=== PATIENT | male | born 1975 | race Caucasian/White ===

== ENCOUNTER 2019-12-29 07:55 | Emergency (ER) | payer OTHER ==
--- NOTE | 2019-12-29 08:08 | ED Physician Documentation ---
History of Present Illness - Stated complaint Stated Complaint: CP/VOMITING - Additonal information Additional information: This is a 44-year-old male with a history of chronic back pain, and reported gastritis on ranitidine, who presents with epigastric pain. Pain began last ni ght and was mild, it occurred several hours after eating. It is progressed to this morning when it became severe associated with one episode of vomiting and loose stool. The emesis and stool were nonbloody, nonbilious. Patient's discomfort is located in the midepigastrium radiates somewhat towards the right. He denies shortness of breath, no radiation to the jaw or arms. No diaphoresis. He does have sleep apnea, his father had an KS in his 50s. Patient denies any personal history of cardiac problems. He has not had any abdominal surgeries. No fever. Review of Systems Constitutional: denies: Fever Nose: denies: Congestion Throat: denies: Oral lesions / sores Cardiac: denies: Chest pain / pressure Respiratory: denies: Dyspnea GI: reports: Abdominal Pain : denies: Dysuria Musculoskeletal: denies: Neck pain Neurologic: denies: Generalized weakness Immunocompromised: denies: Immunocompromised PD PAST MEDICAL HISTORY - Past Medical History Respiratory: Sleep apnea - Past Surgical History Past Surgical History: No - Present Medications Home Medications: Ambulatory Orders Medication Instructions Recorded Confirmed HYDROcod/ACETAM 5/325 [[place] 5/325] 1 tab ORAL BID 12/29/19 12/29/19 Ondansetron Odt [Zofran] 4 mg TL Q6H PRN #10 tablet 12/29/19 - Allergies Allergies/Adverse Reactions: Allergies Allergy/AdvReac Type Severity Reaction Status Date / Time ibuprofen AdvReac Unknown Verified 12/29/19 08:03 PD ED PE NORMAL - Vitals Vital signs reviewed: Yes - General General: Alert and oriented X 3 - HEENT HEENT: PERRL - Neck Neck: Supple, no meningeal sign - Cardiac Cardiac: RRR, No murmur - Respiratory Respiratory: No respiratory distress, Clear bilaterally - Abdomen Abdomen: Normal bowel sounds, Soft, Non distended, Other (Very mild tenderness in epigastrium quadrant, but patient tolerates deep palpation, no guarding.) - Derm Derm: Warm and dry - Extremities Extremities: No deformity - Neuro Neuro: Alert and oriented X 3 - Psych Psych: Normal mood, Normal affect Results - Vitals Vitals: Vital Signs - 24 hr 12/29/19 12/29/19 12/29/19 08:04 08:16 08:40 Temperature 37.4 C Heart Rate 91 93 93 Respiratory 14 16 14 Rate Blood Pressure 136/92 H 129/86 H 137/90 H O2 Saturation 96 94 98 12/29/19 12/29/19 12/29/19 09:06 10:36 12:24 Temperature Heart Rate 96 78 69 Respiratory 14 18 17 Rate Blood Pressure 131/85 H 118/80 116/75 O2 Saturation 95 95 97 12/29/19 13:22 Temperature 36.8 C Heart Rate 72 Respiratory 20 Rate Blood Pressure 114/74 O2 Saturation 95 Oxygen O2 Source Room air - EKG (time done) 8:06 Other comments: Other comments (Rate 108, rhythm sinus tachycardia, there is no significant ST elevation or depression, slight suggestion of possible ST depression in V3 appears to be more rate related with a lack of return to baseline over the TP segment. Intervals are within normal limits) 11:08 Other comments: Other comments (Rate 74, rhythm sinus, there is depression, no abnormal T wave inversions. QTc 424.) - Labs Labs: Laboratory Tests 12/29/19 12/29/19 12/29/19 08:16 08:16 08:16 WBC 17.8 H RBC 5.50 Hgb 15.2 Hct 45.9 MCV 83.5 MCH 27.6 MCHC 33.1 RDW 12.7 Plt Count 259 MPV 10.6 Neut # (Auto) 15.6 H Lymph # (Auto) 0.6 L [place] # (Auto) 1.3 H Eos # (Auto) 0.2 Baso # (Auto) 0.1 Absolute Nucleated RBC 0.00 Nucleated RBC % 0.0 Sodium 137 Potassium 3.8 Chloride 100 L Carbon Dioxide 22 Anion Gap 15.0 H BUN 20 Creatinine 0.9 Estimated GFR (MDRD) 93 Glucose 121 H Calcium 9.0 Total Bilirubin 1.4 H AST 24 ALT 30 Alkaline Phosphatase 62 Troponin I High Sens 2.4 Total Protein 8.1 Albumin 4.7 Globulin 3.4 Albumin/Globulin Ratio 1.4 Lipase 31 12/29/19 11:07 WBC RBC Hgb Hct MCV MCH MCHC RDW Plt Count MPV Neut # (Auto) Lymph # (Auto) [place] # (Auto) Eos # (Auto) Baso # (Auto) Absolute Nucleated RBC Nucleated RBC % Sodium Potassium Chloride Carbon Dioxide Anion Gap BUN Creatinine Estimated GFR (MDRD) Glucose Calcium Total Bilirubin AST ALT Alkaline Phosphatase Troponin I High Sens < 2.3 L Total Protein Albumin Globulin Albumin/Globulin Ratio Lipase PD MEDICAL DECISION MAKING - ED course ED course: On evaluation patient is uncomfortable nontoxic-appearing. Vital signs are notable for some tachycardia in triage but normal on my evaluation. His abdomen is overall benign, he does have some mild tenderness in the right upper quadrant. Pt was given morphine and zofran. EKG does not show convincing signs of ischemia or dysrhythmia. Labs are notable for leukocytosis, he also does have a mild bilirubin elevation which may be due to starvation hyperbilirubinemia, potential biliary pathology is also possible, though his LFTs are normal and the bilirubin is only very slightly elevated. His troponin is negative, and the location of his pain in the right upper quadrant of his abdomen would be highly atypical for ACS. His symptoms have been ongoing since last night, but worsened this morning so a delta troponin was obtained and again is negative, 2nd EKG also reassuring. RUQ US shows some sludge but no stone or cholelithiasis. It also shows some steatosis, pt is already aware of this. On repeat exam he is feeling well, abdomen is non-tender, vital signs are unremarkable. I discussed our results and that it is unclear what the cause of his symptoms was. Given his improved symptoms and reassuring exam, we will trial close observation at home and I discussed strict return precautions with any worsening. I also reviewed PCP follow up. zofran was prescribed and pt was discharged in good condition in the care of his . Departure - Departure Disposition: 01 Home, Self Care Clinical Impression: Epigastric pain Condition: Good Instructions: ED Epigastric Pain [facility] Follow-Up: HANNY HAMMOND MD [Primary Care Provider] - Prescriptions: Ondansetron Odt [Zofran] 4 mg TL Q6H PRN #10 tablet PRN Reason: Nausea / Vomiting Comments: I do not know the exact cause of your symptoms today. I do not see signs of heart strain/hear attack, and your gallbladder had some sludge in it but no stones or signs of inflammation. Your labs are reassuring. If you are developing increasing pain, or vomiting despite the nausea medication, return to the emergency department. Otherwise please follow-up with your primary care provider as we discussed. Forms: Activity restrictions Discharge Date/Time: 12/29/19 13:16
[2019-12-29 08:29] LABS: BASOPHILS # (AUTO) 0.1 10^3/uL (0.0-0.1); BASOPHILS % (AUTO) 0.3 %; EOSINOPHILS # (AUTO) 0.2 10^3/uL (0.0-0.7); HGB - HEMOGLOBIN 15.2 g/dL (14.0-18.0); LYMPHOCYTES # (AUTO) 0.6 10^3/uL (1.5-3.5); LYMPHOCYTES % (AUTO) 3.2 %; MEAN CORPUSCULAR HEMOGLOBIN 27.6 pg (27.0-31.0); MEAN CORPUSCULAR HGB CONC 33.1 g/dL (32.0-36.0); MEAN CORPUSCULAR VOLUME 83.5 fL (80.0-94.0); MEAN PLATELET VOLUME 10.6 fL (7.4-11.4); MONOCYTES # (AUTO) 1.3 10^3/uL (0.0-1.0); MONOCYTES % (AUTO) 7.4 %; NEUTROPHILS # (AUTO) 15.6 10^3/uL (1.5-6.6); NEUTROPHILS % (AUTO) 87.5 %; PLT - PLATELET COUNT 259 10^3/uL (130-450); RED CELL DISTRIBUTION WIDTH 12.7 % (12.0-15.0); WHITE BLOOD COUNT 17.8 x10^3/uL (4.8-10.8)
[2019-12-29] MEDS ORDERED: MORPHINE 2 MG/ML CARPUJECT IVP STA ×2 (08:30→09:09)
[2019-12-29] MEDS ORDERED: ONDANSETRON 4 MG/2 ML VIAL IVP STA (08:30)
--- NOTE | 2019-12-29 08:33 | XRAY Report ---
Reason: Chest Pain Procedure Date: 12/29/2019 Accession Number: [id number] / [id number] Procedure: XR - Chest 1 View X-Ray CPT Code: 33375 Final Report FULL RESULT: EXAM: CHEST RADIOGRAPHY EXAM DATE: 12/29/2019 08:24 AM. CLINICAL HISTORY: Chest Pain. Epigastric pain radiating to the right side of the chest which started last night. COMPARISON: None. TECHNIQUE: 1 view. FINDINGS: Lungs/Pleura: No focal opacities evident. No pleural effusion. No pneumothorax. Mediastinum: Within exam limitations, the cardiomediastinal contour is normal. Other: None. IMPRESSION: Normal single view chest. RADIA
[2019-12-29 08:52] LABS: ALBUMIN 4.7 g/dL (3.2-5.5); ALBUMIN/GLOBULIN RATIO 1.4 (1.0-2.2); BILIRUBIN,TOTAL 1.4 mg/dL (0.2-1.0); CREATININE 0.9 mg/dL (0.6-1.2); TOTAL PROTEIN 8.1 g/dL (6.7-8.2)
--- NOTE | 2019-12-29 10:44 | Ultrasound Report ---
Reason: Epigastric/RUQ pain, assess for biliary pathology Procedure Date: 12/29/2019 Accession Number: [id number] / [id number] Procedure: US - Abdomen Limited CPT Code: Final Report FULL RESULT: EXAM: ABDOMEN ULTRASOUND LIMITED, RUQ EXAM DATE: 12/29/2019 10:08 AM. CLINICAL HISTORY: Epigastric/RUQ pain, assess for biliary pathology. COMPARISON: None. TECHNIQUE: Real-time scanning was performed with static images obtained. FINDINGS: Liver: The liver is enlarged and diffusely increased in echogenicity. No focal lesions. 18.3 cm. Main portal vein flow: Hepatopetal. Gallbladder: Small amount of sludge in the gallbladder with no gallbladder wall thickening or sonographic Bran's sign elicited in this pain medicated patient. Biliary System: CBD measures 3 mm. No intrahepatic or extrahepatic ductal dilatation. Other: The right kidney measures 11.8 cm in length with no hydronephrosis or renal calculus. IMPRESSION: 1. Hepatomegaly with hepatic parenchymal disease (likely fatty liver). 2. Sludge in the gallbladder with no secondary signs of acute cholecystitis. 3. No hydronephrosis or renal calculus in the right kidney. RADIA
[2019-12-29 13:23] VITALS: BP 114/74
== END 2019-12-29 13:16 | disposition home or self-care (01) ==
LOC: ED 07:55
DX: R10.13 Epigastric pain (principal); K76.0 Fatty (change of) liver, not elsewhere classified
CPT/HCPCS: 36415; 71045; 76705; 80053; 83690; 84484; 85025; 93005; 96374; 96376; 99284

== ENCOUNTER 2020-10-01 16:36 | Outpatient (CLI) | payer OTHER | END 2020-10-01 16:37 | disposition home or self-care (01) | LOC: COV 16:36 | PROVIDERS: ATTEND Family Medicine | DX: R50.9 Fever, unspecified (principal); R06.02 Shortness of breath; M79.10 Myalgia, unspecified site; R53.83 Other fatigue; R09.81 Nasal congestion; Z20.828 Contact with and (suspected) exposure to other viral communicable diseases ==